=== PATIENT | female | born 1975 | race Caucasian/White ===

== ENCOUNTER 2017-02-03 11:21 | Emergency (ER) | payer OTHER ==
[2017-02-03 11:31] VITALS: BP 125/70; PULSE 96; TEMP 99.1; BMI 29.2
--- NOTE | 2017-02-03 11:32 | PDOC ---
History of Present Illness - General Chief Complaint: Injury Stated Complaint: PAIN/ ABD, LEG Time Seen by Provider: 02/03/17 11:29 History Source: Patient Exam Limitations: No Limitations - History of Present Illness Initial Comments: CHIEF COMPLAINT: 41 y/o female with no significant PMH c/o left ankle and foot pain s/p slip and fall today. HISTORY OF PRESENT ILLNESS: The patient states she was putting her garbage out when she tripped and fell, twisting her left foot. She states she can walk but with pain. She has not taken anything for the pain. She denies all other symptoms. Vital signs on arrival are notable for pulse of 96. REVIEW OF SYSTEMS: GENERAL/CONSTITUTIONAL: No fever/chills. No weakness. No weight change. MUSCULOSKELETAL: +left ankle and foot pain. No neck or back pain. SKIN: No rash or easy bruising. NEUROLOGIC: No headache, vertigo, loss of consciousness, or loss of sensation. PHYSICAL EXAM: VITAL_SIGNS: within normal limits GENERAL_APPEARANCE: alert, cooperative, with obvious discomfort with ambulation. Patient is walking with a limp, barely putting weight on her left foot. MENTAL_STATUS: speech clear, oriented X 3, responds appropriately to questions. NEURO: motor intact and sensory intact in injured extremity. EXTREMITIES: Pain with palpation and swelling over left cuboid bone. No edema to left ankle or pain with palpation. Full flexion, extension, inversion and eversion of left ankle with some pain. No erythema or streaking. No crepitus. SKIN: warm, dry, good color. Past History - Past Medical History Allergies/Adverse Reactions: Allergies Allergy/AdvReac Type Severity Reaction Status Date / Time No Known Allergies Allergy Verified 02/03/17 11:24 Home Medications: Ambulatory Orders NK [No Known Home Medication] 02/03/17 - Psycho/Social/Smoking Cessation Hx Suicidal Ideation: No Smoking History: Never smoked *Physical Exam - Vital Signs Last Vital Signs Temp Pulse Resp BP Pulse Ox 99.1 F 96 H 16 125/70 100 02/03/17 11:25 02/03/17 11:25 02/03/17 11:25 02/03/17 11:25 02/03/17 11:25 Medical Decision Making - Medical Decision Making A/P:n 41 y/o female with left foot pain s/p slip and fall. Plan is as follows: 1. hcg 2. Xray left foot/ankle hcg - negative Xray left foot/ankle IMPRESSION: No acute bony abnormalities. gave patient the results. Wrapped her affected foot and ankle in an MARLEEN bandage. Gave her Ibuprofen in the ER for pain/swelling. Provided RICE instructions and suggested Ibuprofen for pain with food every 6 hours. Instructed her to f/u with Dr. Fairbanks in 1 week if no improvement in symptoms. The patient verbalizes understanding of all instructions, has no further questions and is awaiting discharge. *DC/Admit/Observation/Transfer Diagnosis at time of Disposition: Foot pain, left Left ankle sprain Qualifiers: Encounter type: initial encounter Involved ligament of ankle: unspecified ligament Qualified Code(s): S93.402A - Sprain of unspecified ligament of left ankle, initial encounter - Discharge Dispostion Disposition: HOME Condition at time of disposition: Good - Referrals Referrals: Dano Fairbanks MD [Staff Physician] - 1 week - Patient Instructions Printed Discharge Instructions: DI for Foot Pain, DI for Ankle Sprain, How To Perform RICE (Rest, Ice, Compress, Elevate) Additional Instructions: Discharge Instructions: -Your xrays showed no broken bones -You sprained your foot and your ankle -The treatment for your symptoms is to use an MARLEEN bandage, to follow RICE instructions in your discharge paperwork and to take 600mg of over the counter Ibuprofen every 6 hours for pain/swelling -You should walk on your foot even though it hurts -If you have no improvement in 1 week, please call Dr. Fairbanks and make a follow up appointment Instrucciones de manasa: - Jory kirill x no mostraron huesos rotos -Tu esguince tu pie y tu tobillo -El tratamiento para jory sntomas es usar un vendaje MARLEEN, seguir las instrucciones de RICE en frost papeleo de descarga y portia 600mg de sobre el mostrador Ibuprofen cada 6 horas para dolor / inflamacin -Usted debe caminar sobre frost pie a pesar de que duele -Si no tiene mejora en drew semana, por favor llame al Dr. Fairbanks y ector drew marga de seguimiento Print Language: GREENLANDIC - Post Discharge Activity Work/School Note: Back to Work
[2017-02-03] MEDS ORDERED: IBUPROFEN 600 MG TABLET (FP) PO ONE ×2 (12:53→12:56)
== END 2017-02-03 13:07 | disposition home or self-care (01) ==
LOC: JERFT 11:21
DX: S93.402A Sprain of unspecified ligament of left ankle, initial encounter (principal); M79.672 Pain in left foot; W01.0XXA Fall on same level from slipping, tripping and stumbling without subsequent striking against object, initial encounter; Y93.89 Activity, other specified; Y92.9 Unspecified place or not applicable
CPT/HCPCS: 73610-TC-LT; 73630-TC-LT; 84703; 99281-25

== ENCOUNTER → 2019-01-20 | Day surgery (SDC) | payer OTHER ==
--- NOTE | 2019-01-24 10:38 | PATH ---
Surgical Pathology Report Patient Name: JOSE GUERRERO [facility]. Rec. #: [id number] /Age/Gender: 1975 (Age: 43) / F Account: [id number] Location: [facility] Taken: 01/20/2019 Received: 01/20/2019 Reported: 01/24/2019 Physicians: Misael Regalado D.O. Specimen(s) Received A: LEFT BREAST SPECIMEN - WITH CALCIFICATIONS B: LEFT BREAST SPECIMEN - WITHOUT CALCIFICATIONS Clinical History Nonpalpable lesion Mammographic findings: Microcalcification, suspicious Final Diagnosis A,B. BREAST, LEFT, WITH AND WITHOUT CALCIFICATIONS, STEREOTACTIC BIOPSY: LOBULAR CARCINOMA IN SITU (LCIS), CLASSICAL TYPE, INVOLVING COLLAGENOUS SPHERULOSIS WITH ASSOCIATED CALCIFICATIONS. (SEE NOTE). Note: Immunohistochemical stains performed at [facility] show the following results: the foci of LCIS are negative for E-Cadherin, which supports lobular phenotype. Myoepithelial immunohistochemical markers (SMM-HC, p63 & S100) demonstrate the presence of myoepithelial cells in the foci of collagenous spherulosis. The foci of foci of collagenous spherulosis and LCIS positive for ER and OK. These findings support the diagn theosis. Electronically Signed Becca Stone M.D. Gross Description A. Received in formalin labeled "left breast with calcifications," are 4 samson-yellow, cylindrical portions of fibroadipose tissue ranging from 2.0-2.5 cm in length and averaging 0.3 cm in diameter. The specimens are submitted in toto in one cassette. B. Received in formalin labeled "left breast without calcifications," are 3 samson-yellow, cylindrical portions of fibroadipose tissue ranging from 2.2-2.6 cm in length and averaging 0.3 cm in diameter. The specimens are submitted in toto in one cassette. Time to formalin fixation: 5 minutes Total formalin fixation time: Approximately 8 hours. 01/20/201901/20/2019
== END | disposition home or self-care (01) ==
LOC: FMAMMOTONE 08:56
PROVIDERS: ATTEND Student in an Organized Health Care Education/Training Program
PROC: 0HBU3ZX Excision of Left Breast, Percutaneous Approach, Diagnostic (ICD-10-PCS; principal; 2019-01-20)
DX: D05.02 Lobular carcinoma in situ of left breast (principal); R92.1 Mammographic calcification found on diagnostic imaging of breast
CPT/HCPCS: 19081; 87899; 88305-TC; 88341-TC; 88342-TC; A4648

== ENCOUNTER 2019-03-24 08:26 | Emergency (ER) | payer OTHER ==
[2019-03-24 08:31] VITALS: BP 122/62; PULSE 78; TEMP 98.6; BMI 30.5
--- NOTE | 2019-03-24 09:29 | PDOC ---
History of Present Illness - General Chief Complaint: Sore Throat Stated Complaint: COUGH Time Seen by Provider: 03/24/19 09:03 History Source: Patient Exam Limitations: Language Barrier (physician intensivist ID# [id number]) Past History - Past Medical History Allergies/Adverse Reactions: Allergies Allergy/AdvReac Type Severity Reaction Status Date / Time No Known Allergies Allergy Verified 03/24/19 08:31 Home Medications: Ambulatory Orders Benzonatate [Tessalon Pearls -] 200 mg PO TID #42 cap 03/24/19 COPD: No - Immunization History Immunization Up to Date: Yes - Psycho Social/Smoking Cessation Hx Smoking History: Never smoked Have you smoked in the past 12 months: No Information on smoking cessation initiated: No Hx Alcohol Use: No Drug/Substance Use Hx: No *Physical Exam - Vital Signs Last Vital Signs Temp Pulse Resp BP Pulse Ox 98.6 F 78 18 122/62 99 03/24/19 08:27 03/24/19 08:27 03/24/19 08:27 03/24/19 08:27 03/24/19 08:27 - Physical Exam General Appearance: No: Apparent Distress HEENT: positive: Normal ENT Inspection, Normal Voice. negative: Muffled/Hoarse voice, Pharyngeal Erythema, Tonsillar Exudate, Tonsillar Erythema, Nasal Congestion, Rhinorrhea, Sinus Tenderness Respiratory/Chest: positive: Lungs Clear, Normal Breath Sounds. negative: Respiratory Distress Cardiovascular: positive: Regular Rhythm, Regular Rate, S1, S2. negative: Murmur Neurologic: positive: Alert Medical Decision Making - Medical Decision Making 43 y/o F with no sig pmh presents with throat pain, productive cough, congestion , R ear pain, slight sneezing x 5 days. Has been using Mucinex with some help. Denies fever, sob, cp, abd pain, n/v. Likely viral URI ENT exam unremarkable 03/24/19 09:27 Discharge - Discharge Information Problems reviewed: Yes Clinical Impression/Diagnosis: Viral URI Condition: Stable Disposition: HOME - Admission No - Additional Discharge Information Prescriptions: Benzonatate [Tessalon Pearls -] 200 mg PO TID #42 cap Prescription Drug Monitoring Program (I-STOP) results: I-STOP not reviewed - Follow up/Referral Referrals: Claudio Suárez MD [Primary Care Provider] - 2 Days - Patient Discharge Instructions Patient Printed Discharge Instructions: DI for Viral Upper Respiratory Infection -- Adult Additional Instructions: Thank you for choosing [facility]. It was a pleasure taking care of you. Likely your symptoms are viral in nature Use the Tessalon Perles for cough Also recommend salt water gargles Follow-up with doctor in 2days Return to the Emergency Department if your symptoms worsen or persist or have other concerning symptoms. Thelma por elegir el [facility]. Fue un placer cuidar de ti. Probablemente liban sntomas son de naturaleza viral. Usa el Tessalon Perles para la tos Tambin recomendamos grgaras de agua salada Seguimiento con el mdico en 2 ward. Regrese al departamento de emergencias si liban sntomas empeoran o persisten o si tiene otros sntomas preocupantes. Print Language: [place] - Post Discharge Activity
== END 2019-03-24 09:39 | disposition home or self-care (01) ==
LOC: JERFT 08:26
DX: J06.9 Acute upper respiratory infection, unspecified (principal); B97.89 Other viral agents as the cause of diseases classified elsewhere
CPT/HCPCS: 99281-25

== ENCOUNTER 2021-01-15 23:25 | Emergency (ER) | payer OTHER ==
[2021-01-15 23:54] VITALS: BP 145/69; PULSE 97; TEMP 100.8; BMI 27.4
[2021-01-16] MEDS ORDERED: ACETAMINOPHEN 500 MG TABLET (FP) PO ONE (01:42)
[2021-01-16] MEDS ORDERED: ACETAMINOPHEN 500 MG TABLET (FP) ONE (01:45)
[2021-01-16 02:11] LABS: BASO % 0.4 % (0-2.0); HEMATOCRIT 37.3 % (32.4-45.2); HEMOGLOBIN 12.8 GM/dL (10.7-15.3); LYMPH % 25.4 % (8-40); MCH 31.7 pg (25.7-33.7); MCHC 34.3 g/dl (32.0-36.0); MEAN CELL VOLUME 92.5 fl (80-96); MONO % 5.7 % (3.8-10.2); NEUT % 68.5 % (42.8-82.8); PLATELET COUNT 212 10^3/uL (134-434); RBC 4.03 M/mm3 (3.60-5.2); WHITE BLOOD COUNT 3.9 K/mm3 (4.0-10.0)
[2021-01-16 02:39] LABS: CHLORIDE 108 mmol/L (98-107); SODIUM 142 mmol/L (136-145)
[2021-01-16 02:41] LABS: ALBUMIN 3.7 g/dl (3.4-5.0); CALCIUM 8.8 mg/dL (8.5-10.1); LIPASE 229 U/L (73-393)
[2021-01-16 02:43] LABS: ANION GAP 10 MMOL/L (8-16); CO2 25 mmol/L (21-32); GLUCOSE,RANDOM 114 mg/dL (74-106)
[2021-01-16 02:45] LABS: SGOT/AST 21 U/L (15-37); SGPT/ALT 23 U/L (13-61)
[2021-01-16 02:46] LABS: CREATININE 0.7 mg/dL (0.55-1.3)
[2021-01-16 02:47] LABS: ALK PHOS 72 U/L (45-117); BILIRUBIN,TOTAL 0.2 mg/dL (0.2-1); TOT PROT 7.4 g/dl (6.4-8.2)
== END 2021-01-16 03:14 | disposition home or self-care (01) ==
LOC: JER 23:25
DX: J06.9 Acute upper respiratory infection, unspecified (principal)
CPT/HCPCS: 36415; 80053; 82550; 82553; 83690; 84484; 84702; 85025; 93005; 93010; 99284-25

== ENCOUNTER 2022-06-03 11:18 | Emergency (ER) | payer OTHER ==
[2022-06-03 11:35] VITALS: BP 151/73; PULSE 98; RESP 18; TEMP 98.9; BMI 31.5
[2022-06-03] MEDS ORDERED: MAG HYDROX/AL HYDROX/SIMETH 30 ML UNIT-DOSE CUP PO ONE (12:05)
[2022-06-03] MEDS ORDERED: ACETAMINOPHEN 1000 MG/100 ML BAG IVPB ONE (12:05)
[2022-06-03] MEDS ORDERED: FAMOTIDINE 20 MG/50 ML IVPB 20 MG/50 ML MG IVPB ONE ×2 (12:05→12:18)
[2022-06-03] MEDS ORDERED: LACTATED RINGERS SOLUTION 1000 ML INFUS.BAG IV ONE (12:05)
[2022-06-03] MEDS ORDERED: ONDANSETRON 4 MG/2 ML VIAL IVPUSH ONE (12:05)
[2022-06-03] MEDS ORDERED: ACETAMINOPHEN INJECTION 100 ML IVPB ONE (12:15)
[2022-06-03] MEDS ORDERED: ONDANSETRON 4 MG/2 ML VIAL ONE (12:18)
[2022-06-03] MEDS ORDERED: MAG HYDROX/AL HYDROX/SIMETH 30 ML UNIT-DOSE CUP ONE (12:18)
[2022-06-03 12:40] LABS: BASO % 0.2 % (0-2.0); EOS % 0.1 % (0-4.5); HEMATOCRIT 38.4 % (32.4-45.2); HEMOGLOBIN 12.9 GM/dL (10.7-15.3); LYMPH % 18.1 % (8-40); MCH 31.1 pg (25.7-33.7); MCHC 33.4 g/dl (32.0-36.0); MEAN CELL VOLUME 92.9 fl (80-96); MONO % 6.7 % (3.8-10.2); NEUT % 74.9 % (42.8-82.8); PLATELET COUNT 223 10^3/uL (134-434); RBC 4.14 M/mm3 (3.60-5.2); RDW 13.4 % (11.6-15.6); WHITE BLOOD COUNT 5.5 K/mm3 (4.0-10.0)
[2022-06-03 12:47] LABS: INR 1.05 (0.83-1.09); PROTHROMBIN TIME (PATIENT) 12.1 SEC (9.7-13.0)
[2022-06-03 12:49] LABS: ACTIVATED PTT 25.7 SECONDS (25.2-36.5)
[2022-06-03 12:52] LABS: CALCIUM 9.5 mg/dL (8.5-10.1)
[2022-06-03 12:54] LABS: ALBUMIN 3.9 g/dl (3.4-5.0)
[2022-06-03 12:55] LABS: PH,URINE 5.5 (5.0-8.0); URINE APPEARANCE CLEAR; URINE BILIRUBIN NEGATIVE (NEGATIVE); URINE COLOR YELLOW; URINE GLUCOSE (UA) NEGATIVE (NEGATIVE); URINE KETONE NEGATIVE (NEGATIVE); URINE LEUK ESTERASE NEGATIVE (NEGATIVE); URINE NITRITE NEGATIVE (NEGATIVE); URINE PROTEIN NEGATIVE (NEGATIVE); URINE UROBILINOGEN 0.2 mg/dL (0.2-1.0)
[2022-06-03 12:57] LABS: BILIRUBIN,TOTAL 0.3 mg/dL (0.2-1); TOT PROT 7.5 g/dl (6.4-8.2)
[2022-06-03 12:59] LABS: CREATININE 0.5 mg/dL (0.55-1.3)
== END 2022-06-03 15:21 | disposition home or self-care (01) ==
LOC: JER 11:18 → JERFT 11:18
PROC: 3E033GC Introduction of Other Therapeutic Substance into Peripheral Vein, Percutaneous Approach (ICD-10-PCS; principal; 2022-06-03)
DX: R10.13 Epigastric pain (principal)
CPT/HCPCS: 36415; 71046-TC-FY; 76705-TC; 80053; 81003; 83690; 84703; 85025; 85610; 85730; 86850; 86900; 86901; 87086; 93005; 93010; 99285-25

== ENCOUNTER 2022-06-16 18:32 | Emergency (ER) | payer OTHER ==
[2022-06-16 18:57] VITALS: BP 118/76; PULSE 87; RESP 18; TEMP 98.9; BMI 30.8
[2022-06-16] MEDS ORDERED: SIMETHICONE 80 MG TAB.CHEW (FP) PO ONE (20:13)
[2022-06-16] MEDS ORDERED: SIMETHICONE 80 MG TAB.CHEW (FP) ONE (20:42)
== END 2022-06-16 21:37 | disposition home or self-care (01) ==
LOC: JERFT 18:32
DX: R14.1 Gas pain (principal)
CPT/HCPCS: 74018-TC-FY; 99283-25